=== PATIENT | male | born 1985 | race African-American/Black ===

== ENCOUNTER 2019-10-11 17:48 | Emergency (ER) | payer SELFPAY ==
[~2019-10-11] VITALS: Ht 175.3 cm; Wt 72.7 kg
[~2019-10-11 17:48] MED LIST: ARIP5TAB8 PO; CLON.2 PO; LURA80 PO
[2019-10-11] MEDS ORDERED: BUSP5TAB20 PO (17:57)
[2019-10-11] MEDS ORDERED: POVIDONE-IODINE 10% 15 ML SOLUTION UD TP ONE (18:30)
[2019-10-11] MEDS ORDERED: BACITRACIN 0.9 GM PACKET OINTMENT TP ONE (18:30)
[2019-10-11] MEDS ORDERED: RABIES IMMUNE GLOBULIN/PF 300 UNITS/ML 5 ML VIAL IM ONE ×2 (18:30→18:45)
[2019-10-11] MEDS ORDERED: PERTUSS(ACELL),DIPH,TET VAC/PF 0.5 ML VIAL IM ONE (18:30)
[2019-10-11] MEDS ORDERED: IBUPROFEN 800 MG TABLET PO ONE (18:30)
[2019-10-11] MEDS ORDERED: RABIES VAC,PF CHICK-EMB CELL 2.5 UNITS/ML SYRINGE IM ONE (18:30)
[2019-10-11 19:45] VITALS: BP 170/92
== END 2019-10-11 19:56 | disposition home or self-care (01) ==
LOC: EMS 17:49
DX: S51.852A Open bite of left forearm, initial encounter (principal); F32.9 Major depressive disorder, single episode, unspecified; F20.9 Schizophrenia, unspecified; F17.210 Nicotine dependence, cigarettes, uncomplicated; F12.90 Cannabis use, unspecified, uncomplicated; F15.90 Other stimulant use, unspecified, uncomplicated; Z79.899 Other long term (current) drug therapy; W54.0XXA Bitten by dog, initial encounter; Y93.89 Activity, other specified; Y92.89 Other specified places as the place of occurrence of the external cause; Y99.8 Other external cause status
CPT/HCPCS: 90375; 90471; 90472; 90675; 90715; 96372; 99406

== ENCOUNTER 2019-10-14 19:16 | Emergency (ER) | payer SELFPAY ==
[~2019-10-14] VITALS: Ht 175.3 cm; Wt 72.7 kg
[~2019-10-14 19:16] MED LIST changes: +BUSP5TAB20 PO; -CLON.2 PO; -LURA80 PO
[2019-10-14 19:26] VITALS: BP 156/95
[2019-10-14] MEDS ORDERED: RABIES VAC,PF CHICK-EMB CELL 2.5 UNITS/ML SYRINGE IM ONE (19:45)
== END 2019-10-14 20:15 | disposition home or self-care (01) ==
LOC: EMS 19:18
DX: Z20.3 Contact with and (suspected) exposure to rabies (principal); I10 Essential (primary) hypertension; F32.9 Major depressive disorder, single episode, unspecified; F20.9 Schizophrenia, unspecified; F17.210 Nicotine dependence, cigarettes, uncomplicated; F12.90 Cannabis use, unspecified, uncomplicated
CPT/HCPCS: 90675